=== PATIENT | female | born 1935 | race Caucasian/White ===

== ENCOUNTER 2019-11-06 08:23 | Emergency (ER) | payer MEDICARE, BC ==
[~2019-11-06] VITALS: Ht 162.6 cm; Wt 62.6 kg
[2019-11-06 08:52] LABS: BASOPHILS # (AUTO) 0.1 /CMM (0.0-0.2); EOSINOPHILS % (AUTO) 4.5 % (0.0-6.0); HEMATOCRIT 40 % (33-45); HEMOGLOBIN 13.5 g/dL (11.5-14.8); LYMPHOCYTES # (AUTO) 1.1 /CMM (0.8-4.8); LYMPHOCYTES % (AUTO) 13.5 % (20.0-44.0); MEAN CORPUSCULAR HGB CONC 34 g/dl (31.0-36.0); MEAN CORPUSCULAR VOLUME 89 fL (82-100); MONOCYTES # (AUTO) 0.6 /CMM (0.1-1.30); MONOCYTES % (AUTO) 7.5 % (2.0-12.0); NEUTROPHILS # (AUTO) 6.3 /CMM (1.8-8.9); NEUTROPHILS % (AUTO) 73.5 % (43.0-81.0); PLATELET COUNT (AUTO) 255 /CMM (150-450); RED BLOOD CELL COUNT(AUTO) 4.47 MIL/uL (4.0-5.2); WHITE BLOOD COUNT (AUTO) 8.5 K/uL (4.3-11.0)
[2019-11-06] MEDS: IV NS 0.9% 500 ML BAG IV ONE (09:00)
--- NOTE | 2019-11-06 09:00 | NUR ---
Patient JIMENA from care facility, had a syncopal epsiode in the bathroom with caregiver. On room air, breathing evenly and unlabored. connected to the monitor and pulse ox. Kept comfortable, will continue to monitor accordingly.
[2019-11-06 09:13] LABS: CALCIUM, SERUM 9.4 mg/dL (8.5-10.1); CREATININE 1.2 mg/dL (0.6-1.3); POTASSIUM 4.7 mmol/L (3.5-5.1)
[2019-11-06] MEDS ORDERED: ALEN70TA6 PO (09:38)
[2019-11-06] MEDS ORDERED: CALC-7 PO (09:39)
[2019-11-06] MEDS ORDERED: METH1ADH6 TP (09:39)
[2019-11-06] MEDS ORDERED: PRAV20TA4 PO (09:39)
[2019-11-06] MEDS ORDERED: MEMA1CAP3 PO (09:39)
[2019-11-06] MEDS ORDERED: ASPI-1169 PO (09:39)
[2019-11-06] MEDS ORDERED: TRIA15OI2 TP (09:39)
[2019-11-06] MEDS ORDERED: IBUP-1955 PO (09:39)
[2019-11-06] MEDS ORDERED: ESCI10TA PO (09:39)
[2019-11-06] MEDS ORDERED: CA C1TAB86 PO (09:39)
[2019-11-06] MEDS ORDERED: BUPR-51 PO (09:39)
[2019-11-06 10:38] VITALS: BP 150/71
--- NOTE | 2019-11-06 10:39 | NUR ---
Patient discharged to home in stable condition. Written and verbal after care instructions given. Patient sister verbalizes understanding of instruction.IV removed. Catheter intact and site benign. Pressure and 4x4 applied to site. No bleeding noted.
== END 2019-11-06 10:39 | disposition home or self-care (01) ==
LOC: ER 08:43 → EDBD 08:43 → ER 10:39
DX: S00.81XA Abrasion of other part of head, initial encounter (principal); R55 Syncope and collapse; R00.1 Bradycardia, unspecified; F03.90 Unspecified dementia, unspecified severity, without behavioral disturbance, psychotic disturbance, mood disturbance, and anxiety; I48.91 Unspecified atrial fibrillation; E78.5 Hyperlipidemia, unspecified; Z88.0 Allergy status to penicillin; Z79.82 Long term (current) use of aspirin; Z79.899 Other long term (current) drug therapy; W18.39XA Other fall on same level, initial encounter; Y93.89 Activity, other specified; Y92.89 Other specified places as the place of occurrence of the external cause; Y99.8 Other external cause status
CPT/HCPCS: 36415; 70450; 71045; 72170; 80048; 85025; 93005; 99285; J7040

== ENCOUNTER 2020-03-13 00:22 | Inpatient (IN) | payer MEDICARE, BC ==
[2020-03-13] VITALS (7 sets, daily range): BP systolic 126–167; BP diastolic 57–90
[~2020-03-13] VITALS: Ht 162.6 cm; Wt 62.6 kg
[~2020-03-13 00:22] MED LIST: ALEN70TA6 PO; ASPI-1169 PO; BUPR-51 PO; CA C1TAB86 PO; CALC-7 PO; ESCI10TA PO; IBUP-1955 PO; MEMA1CAP3 PO; METH1ADH6 TP; PRAV20TA4 PO; TRIA15OI2 TP
--- NOTE | 2020-03-13 00:30 | NUR ---
PT BIBA FROM SNF D/T LOW O2 SAT. PT SATTING 985 ON RA W/ NO MEDICAL COMPLAINTS AT THIS TIME. PT AAOX4, VSS, NO ACUTE DISTRESS NOTED. PT CONNECTED TO THE MONITOR AND POX
[2020-03-13 01:22] LABS: BASOPHILS # (AUTO) 0.1 /CMM (0.0-0.2); EOSINOPHILS % (AUTO) 5.7 % (0.0-6.0); HEMATOCRIT 43 % (33-45); HEMOGLOBIN 14.3 g/dL (11.5-14.8); LYMPHOCYTES # (AUTO) 1.6 /CMM (0.8-4.8); LYMPHOCYTES % (AUTO) 12.8 % (20.0-44.0); MEAN CORPUSCULAR HGB CONC 33 g/dl (31.0-36.0); MEAN CORPUSCULAR VOLUME 86 fL (82-100); MONOCYTES # (AUTO) 1.3 /CMM (0.1-1.30); MONOCYTES % (AUTO) 10.5 % (2.0-12.0); NEUTROPHILS # (AUTO) 8.8 /CMM (1.8-8.9); PLATELET COUNT (AUTO) 268 /CMM (150-450); RED BLOOD CELL COUNT(AUTO) 5.01 MIL/uL (4.0-5.2); WHITE BLOOD COUNT (AUTO) 12.6 K/uL (4.3-11.0)
--- NOTE | 2020-03-13 01:26 | NUR ---
URINE COLLECTED AND SENT TO LAB
[2020-03-13 01:50] LABS: CALCIUM, SERUM 9.7 mg/dL (8.5-10.1); CARBON DIOXIDE 26 mmol/L (21-32); CHLORIDE 99 mmol/L (98-107); CREATININE 1.1 mg/dL (0.6-1.3); GLUCOSE 121 mg/dL (74-106); POTASSIUM 4.2 mmol/L (3.5-5.1); SODIUM SERUM 135 mmol/L (136-145); UREA NITROGEN, BLOOD 28 mg/dL (7-18)
[2020-03-13 01:55] LABS: ALANINE AMINOTRANSFERASE 28 U/L (12-78); ALBUMIN 3.1 g/dL (3.4-5.0); ALKALINE PHOSPHATASE 85 U/L (46-116); ASPARTATE AMINOTRANSFERASE 22 U/L (15-37); BILIRUBIN,DIRECT 0.1 mg/dL (0.0-0.2); BILIRUBIN,TOTAL 0.4 mg/dL (0.2-1.0); TOTAL PROTEIN, SERUM 7.3 g/dL (6.4-8.2)
--- NOTE | 2020-03-13 01:58 | NUR ---
RT AT BEDSIDE FOR ABG
[2020-03-13 02:08] LABS: APPEARANCE,URINE CLEAR (CLEAR); BILIRUBIN,URINE NEGATIVE (NEGATIVE); BLOOD, URINE NEGATIVE Ery/uL (NEGATIVE); COLOR,URINE YELLOW (YELLOW); KETONES,URINE NEGATIVE (NEGATIVE); LEUKOCYTE ESTERASE ,URINE NEGATIVE (NEGATIVE); NITRITE, URINE NEGATIVE (NEGATIVE); PROTEIN,URINE NEGATIVE (NEGATIVE); UGLUCOSE NEGATIVE (NEGATIVE); UROBILINOGEN,URINE 0.2 EU/dL (0.2)
[2020-03-13] MEDS ORDERED: DOXYCYCLINE 100 MG VIAL ONE (02:20)
[2020-03-13] MEDS ORDERED: DOXYCYCLINE 100 MG in IV D5W 100 ML IV ONE (02:30)
--- NOTE | 2020-03-13 02:46 | NUR ---
COVID, INFLUENZA, AND RSV SWAB SAMPLES SENT TO LAB
[2020-03-13] MEDS ORDERED: MIDO5TAB4 PO (02:58)
--- NOTE | 2020-03-13 02:58 | NUR ---
ER DOC ON PHONE WITH HOSPITALIST
[2020-03-13] MEDS ORDERED: IV NS 0.9% 1,000 ML IV PRN (03:05)
[2020-03-13 03:20] LABS: D-DIMER 4.2 mg/L(FEU (0.17-0.50)
[2020-03-13] MEDS ORDERED: MAG HYDROX/AL HYDROX/SIMETH 30 ML UDC PO PRN (03:30)
[2020-03-13] MEDS ORDERED: Z GUARD REMEDY 2 OZ OINT TP PRN (03:30)
[2020-03-13] MEDS ORDERED: ACETAMINOPHEN 325 MG TABLET PO PRN (03:30)
[2020-03-13] MEDS ORDERED: HYDROCODONE/APAP 5/325MG 1 EACH TABLET PO PRN (03:30)
[2020-03-13] MEDS ORDERED: ONDANSETRON HCL/PF 4 MG/2 ML VIAL IVP PRN (03:30)
[2020-03-13] MEDS ORDERED: ZOLPIDEM TARTRATE 5 MG TABLET PO PRN (03:30)
[2020-03-13] MEDS ORDERED: MAGNESIUM HYDROXIDE 30 ML UDC PO PRN (03:30)
[2020-03-13] MEDS ORDERED: ALBUTEROL SULFATE INH 18 GM HFA.AER.AD IH PRN (03:30)
--- NOTE | 2020-03-13 03:45 | NUR ---
RN ADMITTING NOTES: RECEIVED PATIENT FROM ER VIA GURNEY; ADMITTING DIAGNOSIS OF RESPIRATORY FAILURE R/O COVID19; RESULTS PENDING. PATIENT AWAKE, ALERT AND ORIENTED X2. PATIENT DENIES PAIN, IN NO S/SX OF ACUTE DISTRESS AT THIS TIME. NO SOB NOTED. PATIENT'S BREATHING IS EVEN AND UNLABORED. PATIENT IS ON 3 L OF OXYGEN VIA NC; TOLERATING WELL.SATURATING 98% AT THE MOMENT. PATIENT ON TELE MONITORING READING SINUS ANTONIO WITH HR 50s. NOTED IV SITE ON R UA; GAUGE 20,FLUSHING AND PATENT , SALINE LOCKED. NO S/S OF INFECTION OR INFILTRATION. PATIENT ON DIAPERS. NOTED REDNESS AND BRUISES ON BOTH ELBOWS. PICTURE TAKEN AND PLACED IN CHART. PATIENT KEPT CLEAN , DRY AND COMFORTABLE. PATIENT ON SOFT DIET. SAFETY MEASURES HAVE BEEN PROVIDED AND IMPLEMENTED. PATIENT BED ALARM IS ON. HEAD OF BED ELEVATED. BED IS LOCKED, IN LOWEST POSITION AND SIDE RAILS UP. CALL LIGHT WITHIN REACH OF THE PATIENT. ISOLATION PRECAUTIONS IN PLACE. WILL CONTINUE TO MONITOR AND REASSESS FOR ANY CHANGES. WILL ATTEND TO ALL MD ADMITTING ORDERS.
--- NOTE | 2020-03-13 03:51 | NUR ---
PT WAS TRANSFERRED TO 107 UNDER ACLS
[2020-03-13] MEDS ORDERED: VANCOMYCIN 1.25 GM in IV NS 0.9% 250 ML IV ONE (04:30)
[2020-03-13] MEDS ORDERED: VANCOMYCIN 500 MG VIAL ONE (05:12)
[2020-03-13] MEDS ORDERED: VANCOMYCIN 1 GM VIAL ONE (05:14)
--- NOTE | 2020-03-13 05:33 | NUR ---
RN NOTES: MD ORDERED FOR VANCOMYCIN OF 1.25GMS TO BE INFUSED AT 430AM, HOWEVER [facility] ONLY HAVE 1GM, INFORMED LEAD RUBY ON RAILS DEVELOPER. WHAT WAS DONE: 1 GRAM FROM [facility] & 500 GRAMS CAME FROM PHOTOGRAPHIC PRINTER WHEREIN 250 GMS WAS TAKEN FROM TO COMPLETE THE ORDERED DOSE OF 1.25GM ADMINISTERED @533AM. LEAD RUBY ON RAILS DEVELOPER MADE AWARE AND PHARMACY.
[2020-03-13] MEDS ORDERED: PIPERACILLIN /TAZOBACTAM 3.375 G in IV D5W 50 ML IV SCH (06:00)
--- NOTE | 2020-03-13 06:55 | NUR ---
RN CLOSING NOTE: PATIENT REMAINS IN ROOM. NO SIGNS OF RESPIRATORY DISTRESS. SAFETY MEASURES IMPLEMENTED, BED IN LOWEST POSITION, LOCKED, SIDE RAILS UP, CALL LIGHT WITHIN REACH. ALL NEEDS AND ORDERS ADDRESSED DURING THE SHIFT. ALL DUE MEDS GIVEN ORDERED & SCHEDULED ; PATIENT TOLERATED WELL.PATIENT KEPT CLEAN AND COMFORTABLE WITHIN THE SHIFT. ENDORSED TO INCOMING SHIFT RN FOR CONTINUITY OF CARE.
--- NOTE | 2020-03-13 08:15 | NUR ---
RN OPENING NOTE: RECEIVED PATIENT IN BED THIS MORNING. PATIENT IS ALERT AND ORIENTED X1, CONFUSED. SB IN THE 50S ON THE TELE MONITOR. BED REST. USES DIAPER. PATIENT IS ON A SOFT DIET. #20 ON RFA. ISOLATION PRECAUTIONS TO R/O COVID. 3L/MIN O2 VIA NC, SATING WELL, NO SIGNS OF RESPIRATORY DISTRESS NOTED. NO SIGNS OF ACUTE DISTRESS NOTED. SAFETY MEASURES IMPLEMENTED, BED IN LOWEST POSITION, LOCKED, SIDE RAILS UP X2, CALL LIGHT WITHIN REACH. WILL CONTINUE TO MONITOR PATIENT FOR CHANGES.
[2020-03-13] MEDS ORDERED: FEE PK DOSING 1 MIN EA MC ONE (08:38)
[2020-03-13] MEDS ORDERED: ENOXAPARIN SODIUM 30 MG/0.3 ML DISP.SYRIN SQ SCH (09:00)
[2020-03-13] MEDS: BUPROPION XL 150 MG TAB.ER.24 PO SCH (09:50)
[2020-03-13] MEDS: MEMANTINE HCL 5 MG TABLET PO SCH ×2 (09:51→16:16)
[2020-03-13] MEDS: ASPIRIN 81 MG TAB.CHEW PO SCH (09:51)
[2020-03-13] MEDS: MIDODRINE HCL (5MG) 5 MG TABLET PO SCH ×4 (09:51→16:19)
[2020-03-13] MEDS: ENOXAPARIN SODIUM 40 MG/0.4 ML DISP.SYRIN SQ SCH (09:54)
[2020-03-13 10:25] LABS: ABG BASE EXCESS 0.1 mmol/L; ABG OXYGEN SATURATION 91.7 % (92.0-98.5); ABG PCO2 33.4 mmHg (35.0-45.0); ABG PH 7.461 (7.350-7.450); ABG PO2 60.1 mmHg (75.0-100.0); COHb 0.8 % (0.5-1.5); MetHb 0.3 % (0.0-1.5); O2Hb 90.7 % (94.0-97.0); SITE, ABG Right Radial; VENT MODE, BG room air
--- NOTE | 2020-03-13 10:48 | NUR ---
WOUND CARE CONSULT: REVIEWED CHART, NURSING DOCUMENTATION, AND PHOTOS WHICH SHOW BRUISING AND SCARRING TO ELBOWS/ARMS PRESENT ON ADMISSION. RECOMMENDATIONS MADE FOR SKIN PROTECTION. DISCUSSED WITH NURSING STAFF. PT IS ON [place] ISOFLEX LOW AIRLOSS BED. WILL SEE PRN. IN AGREEMENT WITH PLAN OF CARE.
--- NOTE | 2020-03-13 16:20 | NUR ---
1700 MIDODRINE HELD D/T INCREASED BP
[2020-03-13] MEDS: IV NS 0.9% 1,000 ML IV PRN (17:16)
[2020-03-13] MEDS: CALCIUM CARB 250MG /VITAMIN D 1 UDTAB PO SCH (18:50)
--- NOTE | 2020-03-13 19:23 | NUR ---
RN CLOSING NOTE: PATIENT REMAINS IN BED. NO SIGNS OF ACUTE DISTRESS NOTED. SB IN THE 50S ON THE TELE MONITOR. SAFETY MEASURES IMPLEMENTED, BED IN LOWEST POSITION, LOCKED, SIDE RAILS UP, CALL LIGHT WITHIN REACH. ENDORSED TO ONCOMING SHIFT RN FOR CONTINUITY OF CARE.
--- NOTE | 2020-03-13 20:00 | NUR ---
OUTSOLE SKIVER NOTE PT IN BED AWAKE. A/O X 1-2 CONFUSED. PT NOTED PULLED OUT IV LINE NO BLEEDING NOTED. TRIED TO INSERT NEW LINE BUT NO SUCCESS. INFORMED CHARGE NURSE TO TRY LATER. ON TELE SB HR 55. NO S/S OF PAIN NOTED. INCONTINENCE CARE GIVEN. ASSISTED HER REPOSITIONING. REMAIN IN ISOLATION FOR PENDING COVID RESULT. ISOLATION PRECAUTIONS TAKEN. ALL NEEDS ATTENDED. SIDE RAILS UP X 2 AND CALL LIGHT WITHIN REACH. VSS. CONTINUE TO MONITOR HER.
--- NOTE | 2020-03-13 20:45 | NUR ---
RN PLASTIC SURGERY NOTE CHARGE NURSE INSERTED NEW LINE #22 G IN LFA, RESUMED IVF NS AT 40 ML/HR, NO S/S OF INFILTRATION NOTED. CONTINUE TO MONITOR HER.
[2020-03-13] MEDS: ATORVASTATIN 10 MG TABLET PO SCH (21:13)
[2020-03-13] MEDS: ESCITALOPRAM OXALATE (10 MG) 10 MG TABLET PO SCH (21:13)
[2020-03-13] MEDS: VANCOMYCIN 1 GM in IV D5W 250 ML IV SCH (23:55)
[2020-03-14] VITALS: BP 142/80
[2020-03-14 04:00] VITALS: BP 140/71
--- NOTE | 2020-03-14 04:01 | NUR ---
SERVICE ESTABLISHMENT ATTENDANT NOTE PT IS AWAKE AND CONFUSED. KEPT ON REMOVING N/C, REMINDED PT NOT TO DO THAT. PT STATES "i DON'T CARE ANY MORE".
[2020-03-14] MEDS ORDERED: LEVOFLOXACIN 500 MG /D5W 100ML 500 MG in PREMIX 1 EA IV SCH (05:30)
[2020-03-14] MEDS ORDERED: LEVOFLOXACIN 500 MG /D5W 100ML 100 ML IV ONE (05:48)
--- NOTE | 2020-03-14 06:21 | NUR ---
WIRE ROPE SLING MAKER NOTE PT IN BED ASLEEP, AROUSABLE. NO DISTRESS OR DISCOMFORT NOTED. DENIES PAIN. IVF INFUSING WELL, NO S/S INFILTRATION NOTED. ON TELE SB . ALL NEEDS ATTENDED. SIDE RAILS UP X 2 AND CALL LIGHT WITHIN REACH. WILL ENDORSE TO DAY SHIFT NURSE FOR CONTINUE TO CARE.
[2020-03-14 06:32] LABS: BASOPHILS # (AUTO) 0.1 /CMM (0.0-0.2); BASOPHILS % (AUTO) 1.1 % (0.0-2.0); EOSINOPHILS % (AUTO) 5.8 % (0.0-6.0); HEMATOCRIT 40 % (33-45); HEMOGLOBIN 13.3 g/dL (11.5-14.8); LYMPHOCYTES # (AUTO) 1.2 /CMM (0.8-4.8); LYMPHOCYTES % (AUTO) 13.2 % (20.0-44.0); MEAN CORPUSCULAR HGB CONC 34 g/dl (31.0-36.0); MEAN CORPUSCULAR VOLUME 85 fL (82-100); MONOCYTES % (AUTO) 10.9 % (2.0-12.0); PLATELET COUNT (AUTO) 264 /CMM (150-450); RED BLOOD CELL COUNT(AUTO) 4.66 MIL/uL (4.0-5.2); WHITE BLOOD COUNT (AUTO) 8.8 K/uL (4.3-11.0)
[2020-03-14 07:01] LABS: THYROID STIMULATING HORMONE 0.929 uIU/mL (0.358-3.74)
[2020-03-14 07:02] LABS: CALCIUM, SERUM 8.5 mg/dL (8.5-10.1); CREATININE 0.9 mg/dL (0.6-1.3); MAGNESIUM 1.8 mg/dL (1.8-2.4); PHOSPHORUS 3.6 mg/dL (2.5-4.9)
--- NOTE | 2020-03-14 07:35 | NUR ---
RN OPENING NOTES Received pt at bed on RA, O2 sat 94%, tolerating well, IV Left FA G22 noted, patent and intact, running NS @ 40cc/hr, patient on tele-monitor with readings of Sinus Rhythm 63, patient is verbal,Occitan speaking, saying "I am tiered and do not care anymore" A/Ox2, safety measures implemented, bed in lowest position, side rails up, call light within reach, will cont to monitor
[2020-03-14 08:00] VITALS: BP 112/60
[2020-03-14 08:02] LABS: D-DIMER 2.96 mg/L(FEU (0.17-0.50)
[2020-03-14] MEDS: MIDODRINE HCL (5MG) 5 MG TABLET PO SCH ×4 (08:14→16:20)
[2020-03-14] MEDS: MEMANTINE HCL 5 MG TABLET PO SCH ×3 (08:15→16:21)
[2020-03-14] MEDS: ASPIRIN 81 MG TAB.CHEW PO SCH ×2 (08:15→09:00)
[2020-03-14] MEDS: ENOXAPARIN SODIUM 40 MG/0.4 ML DISP.SYRIN SQ SCH ×2 (08:18→09:00)
--- NOTE | 2020-03-14 08:43 | NUR ---
Patient is refusing PO meds and Levonox, saying she "do not care anymore" , tried multiple attempts, holding all meds
[2020-03-14 12:00] VITALS: BP 152/67
[2020-03-14 15:10] LABS: *SPE A/G RATIO 0.9 (0.7-1.7); *SPE ALBUMIN 2.6 g/dL (2.9-4.4); *SPE ALPHA-1-GLOBULIN 0.3 g/dL (0.0-0.4); *SPE ALPHA-2-GLOBULIN 1.1 g/dL (0.4-1.0); *SPE BETA GLOBULIN 0.8 g/dL (0.7-1.3); *SPE M-SPIKE Not Observed g/dL (Not Observed); *SPEGAMMA GLOBULIN 0.8 g/dL (0.4-1.8)
[2020-03-14 16:00] VITALS: BP 195/89
[2020-03-14] MEDS: VANCOMYCIN 1 GM in IV D5W 250 ML IV SCH (17:44)
[2020-03-14] MEDS: CALCIUM CARB 250MG /VITAMIN D 1 UDTAB PO SCH ×2 (17:44→17:58)
--- NOTE | 2020-03-14 17:59 | NUR ---
patient refused 1700 meds
--- NOTE | 2020-03-14 18:00 | NUR ---
Patient willing to speak to case management director, charge nurse notified
--- NOTE | 2020-03-14 18:45 | NUR ---
RN CLOSING NOTES Pt remains in bed, calmly watching TV. A/O x2, patient is verbalizing multiple time per day she doesn't want medical care anymore. Skin is intact, no s/sx of distress, tolerating RA well. Comfort need are met, safety measures implemented, bed in lowest position, call light within reach, will endorse to PM shift RN for LILY
--- NOTE | 2020-03-14 19:20 | NUR ---
RN OPENING NOTES: RECEIVED PT A/OX2; CONFUSED BUT COOPERATIVE. PT IN BED RESTING COMFORTABLY. PATIENT IN NO S/SX OF ACUTE DISTRESS AT THIS TIME. NO SOB NOTED. PATIENT'S BREATHING IS EVEN AND UNLABORED. PATIENT IS ON 3 L OF OXYGEN VIA NC ; TOLERATING WELL. PATIENT ON TELE MONITORING READING SINUS RHYTHM HR IS @66. NOTED IV SITE ON L FA #22 ; PATENT IN INTACT,NO S/S OF INFECTION OR INFILTRATION.PT ON DIAPERS. SAFETY MEASURES HAVE BEEN PROVIDED AND IMPLEMENTED. PATIENT BED ALARM IS ON. HEAD OF BED ELEVATED. BED IS LOCKED, IN LOWEST POSITION AND SIDE RAILS UP. CALL LIGHT WITHIN REACH OF THE PATIENT. ISOLATION PRECAUTIONS IN PLACE. WILL CONTINUE TO MONITOR AND REASSESS FOR ANY CHANGES.
[2020-03-14 20:00] VITALS: BP 184/81
[2020-03-14] MEDS: IV NS 0.9% 1,000 ML IV PRN (20:36)
--- NOTE | 2020-03-14 21:40 | NUR ---
RN NOTES RECEIVED CALL FROM PT'S SISTER SINAI , JUST TRYING TO TOUCH BASE AND TO MAKE SURE THAT PT IS DOING FINE. RN ON SHIFT PROVIDED ASSURANCE TO HER ABOUT PT. SHE IS SO GLAD ABOUT THE SERVICE AND FOR TAKING CARE OF HER SISTER.
[2020-03-14] MEDS: ATORVASTATIN 10 MG TABLET PO SCH (22:37)
[2020-03-14] MEDS: ESCITALOPRAM OXALATE (10 MG) 10 MG TABLET PO SCH (22:37)
[2020-03-15] VITALS (7 sets, daily range): BP systolic 141–181; BP diastolic 80–123
[2020-03-15] MEDS ORDERED: LEVOFLOXACIN 750 MG /D5W 150ML 750 MG in PREMIX 1 EA IV SCH (05:00)
[2020-03-15 06:20] LABS: BASOPHILS # (AUTO) 0.1 /CMM (0.0-0.2); BASOPHILS % (AUTO) 0.7 % (0.0-2.0); EOSINOPHILS % (AUTO) 3.4 % (0.0-6.0); HEMATOCRIT 38 % (33-45); HEMOGLOBIN 12.9 g/dL (11.5-14.8); LYMPHOCYTES # (AUTO) 1.1 /CMM (0.8-4.8); LYMPHOCYTES % (AUTO) 10.3 % (20.0-44.0); MEAN CORPUSCULAR HGB CONC 34 g/dl (31.0-36.0); MEAN CORPUSCULAR VOLUME 85 fL (82-100); MONOCYTES # (AUTO) 1.2 /CMM (0.1-1.30); MONOCYTES % (AUTO) 11.9 % (2.0-12.0); NEUTROPHILS # (AUTO) 7.7 /CMM (1.8-8.9); NEUTROPHILS % (AUTO) 73.7 % (43.0-81.0); PLATELET COUNT (AUTO) 267 /CMM (150-450); RED BLOOD CELL COUNT(AUTO) 4.53 MIL/uL (4.0-5.2); WHITE BLOOD COUNT (AUTO) 10.4 K/uL (4.3-11.0)
--- NOTE | 2020-03-15 06:24 | NUR ---
RN CLOSING NOTE: PATIENT REMAINS IN ROOM. NO SIGNS OF RESPIRATORY DISTRESS. SAFETY MEASURES IMPLEMENTED, BED IN LOWEST POSITION, LOCKED, SIDE RAILS UP, CALL LIGHT WITHIN REACH. ALL NEEDS AND ORDERS ADDRESSED DURING THE SHIFT. ALL DUE MEDS GIVEN ORDERED & SCHEDULED ; PATIENT TOLERATED WELL.PATIENT KEPT CLEAN AND COMFORTABLE WITHIN THE SHIFT. APPROPRIATE ISOLATION PRECAUTION EXECUTED. ENDORSED TO INCOMING SHIFT RN FOR CONTINUITY OF CARE.
[2020-03-15 06:26] LABS: CALCIUM, SERUM 7.9 mg/dL (8.5-10.1); CREATININE 0.9 mg/dL (0.6-1.3); MAGNESIUM 1.9 mg/dL (1.8-2.4); PHOSPHORUS 3.3 mg/dL (2.5-4.9)
[2020-03-15] MEDS: BUPROPION XL 150 MG TAB.ER.24 PO SCH (08:21)
[2020-03-15] MEDS: MEMANTINE HCL 5 MG TABLET PO SCH ×2 (08:22→16:44)
[2020-03-15] MEDS: ASPIRIN 81 MG TAB.CHEW PO SCH (08:23)
[2020-03-15] MEDS: ENOXAPARIN SODIUM 40 MG/0.4 ML DISP.SYRIN SQ SCH (08:25)
[2020-03-15] MEDS: MIDODRINE HCL (5MG) 5 MG TABLET PO SCH ×3 (08:34→16:45)
--- NOTE | 2020-03-15 09:30 | NUR ---
PT HAD A ABDOMEN/PELVIS CT SCAN WITHOUT CONTRAST
--- NOTE | 2020-03-15 10:00 | NUR ---
RN JELLY COSBY FROM [facility] CALLED PATIENT WILL HAVE A THORACENTESIS 03/16/2020, DO NOT ADMINISTER LOVENOX 24 HR WINDOW. WILL ONTAIN PROCEDURE CONSENT
--- NOTE | 2020-03-15 11:31 | NUR ---
I SPOKE TO RN REGARDING THORACENTESIS, WILL BE DONE TOMORROW DUE TO LOVENOX. ALSO RN WILL GET CONSENT TODAY
[2020-03-15] MEDS: VANCOMYCIN 0.75 GM in IV D5W 250 ML IV SCH (12:43)
[2020-03-15] MEDS: SENNOSIDES/DOCUSATE SODIUM 1 TAB TABLET PO SCH (12:53)
--- NOTE | 2020-03-15 13:47 | NUR ---
RN NOTES THORACENTESIS PROCEDURE : LARGE RIGHT PLEURAL EFFUSION, CONSENT OBTAINED BY ROBBIE RN .
--- NOTE | 2020-03-15 15:11 | NUR ---
RN OPENING NOTES: RECEIVED PT IN BED COMFORTABLY , A/OX2; CONFUSED BUT COOPERATIVE. PATIENT IN NO S/SX OF ACUTE DISTRESS AT THIS TIME. NO SOB NOTED. PATIENT'S BREATHING IS EVEN AND UNLABORED. PATIENT IS ON 3 L OF OXYGEN VIA NC ; TOLERATING WELL. PATIENT ON TELE MONITORING READING SINUS RHYTHM HR IS @70'S. NOTED IV SITE ON L FA #22 ; PATENT IN INTACT,NO S/S OF INFECTION OR INFILTRATION.PT ON DIAPERS. SAFETY MEASURES HAVE BEEN PROVIDED AND IMPLEMENTED. PATIENT BED ALARM IS ON. HEAD OF BED ELEVATED. BED IS LOCKED, IN LOWEST POSITION AND SIDE RAILS UP. CALL LIGHT WITHIN REACH OF THE PATIENT. ISOLATION PRECAUTIONS IN PLACE. WILL CONTINUE TO MONITOR .
--- NOTE | 2020-03-15 16:45 | NUR ---
RN NOTES UN-ADMINISTER MIDRODINE DUE TO INCREASED BP. WILL RECHECK IN 30 MINS. NOTIFIED CHARGE NURSE.
--- NOTE | 2020-03-15 17:45 | NUR ---
RN NOTES NOTIFIED MD PIMENTEL BP WITHIN LAST HOUR: 181/82,175/81, AND 189/88.
[2020-03-15] MEDS: CALCIUM CARB 250MG /VITAMIN D 1 UDTAB PO SCH (18:27)
[2020-03-15] MEDS ORDERED: hydrALAZINE HCL 10 MG TABLET PO ONE (18:30)
--- NOTE | 2020-03-15 18:30 | NUR ---
RN NOTES MD PIMENTEL ORDERED HYDROLAZINE 10MG ONCE AND GIVEN
--- NOTE | 2020-03-15 19:20 | NUR ---
RN CLOSING NOTE: ENDORSED PATIENT TO PM NURSE FOR LLIY.PATIENT REMAINS IN ROOM. NO S/S OF RESPIRATORY DISTRESS.PATIENT ON TELE READING SR @ 79'S. SAFETY MEASURES IMPLEMENTED, BED IN LOWEST POSITION, LOCKED, SIDE RAILS UP, CALL LIGHT WITHIN REACH. ALL NEEDS AND ORDERS ADDRESSED DURING THE SHIFT. ALL DUE MEDS GIVEN ORDERED & SCHEDULED ; PATIENT TOLERATED WELL.PATIENT KEPT CLEAN AND COMFORTABLE WITHIN THE SHIFT.
--- NOTE | 2020-03-15 19:40 | NUR ---
RN OPENING NOTE RECEIVED PT in BED RESTING COMFORTABLY. AOX2, CONFUSED AT TIMES. PATIENT IN NO S/SX OF ACUTE DISTRESS AT THIS TIME. PATIENT'S BREATHING IS EVEN AND UNLABORED. PATIENT IS ON 2 L OF OXYGEN VIA NC; TOLERATING WELL. PATIENT ON TELE MONITOR READING SR, HR IS @74. NOTED IV SITE ON LAC, WITH NS AT 40 ML/HR; PATENT AND FLUSHING WELL,NO S/S OF INFECTION OR INFILTRATION. SAFETY MEASURES IMPLEMENTED PER PROTOCOL. PATIENT BED ALARM IS ON. HEAD OF BED ELEVATED. BED IS LOCKED, IN LOWEST POSITION AND SIDE RAILS UP. CALL LIGHT WITHIN REACH OF THE PATIENT. WILL CONTINUE TO MONITOR AND REASSESS FOR ANY CHANGES.
--- NOTE | 2020-03-15 19:40 | NUR ---
RN NOTE TELEPHONE CALL FROM TAMMY OF CLINICAL LAB, STATED PATIENT'S COVID TEST RESULT IS NEGATIVE. GRAVEL INSPECTOR INFORMED.
--- NOTE | 2020-03-15 20:10 | NUR ---
RN NOTE NOTED BP 164/116, SATURATION 91%. REPOSITIONED AND REASSESSED PATIENT. SUPPLEMENTAL O2 ADJUSTED BACK TO 3LPM. NOW SATURATING AT 95%. RECHECKED BP AND REVEALED 174/91. EXTRACTION MACHINE OPERATOR MADE AWARE.
--- NOTE | 2020-03-15 20:50 | NUR ---
regional telecommunications specialist notes Blood pressure 175/91 relayed to puja scales with order hydralazine 10 mg 1vp q 6 hrs prn for sbp >160
[2020-03-15] MEDS ORDERED: hydrALAZINE HCL IV 20 MG VIAL IV PRN (21:00)
--- NOTE | 2020-03-15 21:00 | NUR ---
RN NOTE PATIENT TRANSFERRED TO 115 BED 2. ENDORSED TO MEKHI RN FOR CONTINUATION OF CARE.
[2020-03-15] MEDS: ATORVASTATIN 10 MG TABLET PO SCH ×2 (21:13→21:49)
[2020-03-15] MEDS: ESCITALOPRAM OXALATE (10 MG) 10 MG TABLET PO SCH ×2 (21:14→21:49)
--- NOTE | 2020-03-15 21:42 | NUR ---
RN NOTE: Received report from Ace for LILY.
--- NOTE | 2020-03-15 21:47 | NUR ---
RN NOTE: Rechecked pt's VS post Hydralazine. BP: 156/73 P: 75. Will continue to monitor.
[2020-03-16] VITALS: BP 160/82
[2020-03-16] MEDS: VANCOMYCIN 0.75 GM in IV D5W 250 ML IV SCH ×2 (00:48→12:54)
[2020-03-16 04:00] VITALS: BP 140/69
[2020-03-16 06:47] LABS: BASOPHILS % (AUTO) 0.4 % (0.0-2.0); EOSINOPHILS % (AUTO) 1.1 % (0.0-6.0); HEMATOCRIT 36 % (33-45); HEMOGLOBIN 12.4 g/dL (11.5-14.8); LYMPHOCYTES # (AUTO) 0.8 /CMM (0.8-4.8); LYMPHOCYTES % (AUTO) 8.3 % (20.0-44.0); MEAN CORPUSCULAR HGB CONC 34 g/dl (31.0-36.0); MEAN CORPUSCULAR VOLUME 85 fL (82-100); MONOCYTES # (AUTO) 0.8 /CMM (0.1-1.30); MONOCYTES % (AUTO) 8.4 % (2.0-12.0); NEUTROPHILS # (AUTO) 7.9 /CMM (1.8-8.9); NEUTROPHILS % (AUTO) 81.8 % (43.0-81.0); PLATELET COUNT (AUTO) 268 /CMM (150-450); RED BLOOD CELL COUNT(AUTO) 4.28 MIL/uL (4.0-5.2); WHITE BLOOD COUNT (AUTO) 9.7 K/uL (4.3-11.0)
--- NOTE | 2020-03-16 06:56 | NUR ---
RN CLOSING NOTES: Pt remains on 3L/min NC, tolerating well. No SOB or respiratory distress noted during shift. SR on tele monitor. No acute changes noted throughout shift. IV site on LFA #22 patent and flushing w/ NS infusing at 40ml/hr. All meds administered as ordered. Safety measures in place. Will endorse to AM nurse for LILY.
[2020-03-16 07:02] LABS: CALCIUM, SERUM 7.5 mg/dL (8.5-10.1); CARBON DIOXIDE 22 mmol/L (21-32); CHLORIDE 97 mmol/L (98-107); CREATININE 0.9 mg/dL (0.6-1.3); GLUCOSE 104 mg/dL (74-106); MAGNESIUM 1.8 mg/dL (1.8-2.4); POTASSIUM 3.8 mmol/L (3.5-5.1); SODIUM SERUM 129 mmol/L (136-145); UREA NITROGEN, BLOOD 20 mg/dL (7-18)
[2020-03-16 08:00] VITALS: BP 157/76
--- NOTE | 2020-03-16 08:00 | NUR ---
RN OPENING NOTE RECEIVED PT in BED RESTING COMFORTABLY. AOX2, CONFUSED AT TIMES. PATIENT IN NO S/SX OF ACUTE DISTRESS AT THIS TIME. PATIENT'S BREATHING IS EVEN AND UNLABORED. PATIENT IS ON 2 L OF OXYGEN VIA NC; TOLERATING WELL. PATIENT ON TELE MONITOR READING SR, HR IS @70. NOTED IV SITE ON LAC, WITH NS AT 40 ML/HR; PATENT AND FLUSHING WELL,NO S/S OF INFECTION OR INFILTRATION. SAFETY MEASURES IMPLEMENTED PER PROTOCOL. PATIENT BED ALARM IS ON. HEAD OF BED ELEVATED. BED IS LOCKED, IN LOWEST POSITION AND SIDE RAILS UP. CALL LIGHT WITHIN REACH OF THE PATIENT. WILL CONTINUE TO MONITOR AND REASSESS FOR ANY CHANGES.
[2020-03-16] MEDS: ENOXAPARIN SODIUM 40 MG/0.4 ML DISP.SYRIN SQ SCH (09:00)
--- NOTE | 2020-03-16 09:28 | NUR ---
S/P THORACENTESIS PROCEDURE DONE AND HELD LOVENOX FOR TODAY OBTAINING 1,100 ML PLEURAL FLUID FROM RT PLEURAL SPACE.DR BALL ISN PLANNING TO DO BIOPSY BY THURSDAY BUT HAS TO DISCUSS IT FIRST WITH THE HOSPITALIST FOR TODAY.WILL ORDER STAT CXR STAT.
[2020-03-16] MEDS: MIDODRINE HCL (5MG) 5 MG TABLET PO SCH ×3 (09:38→17:33)
[2020-03-16] MEDS: ASPIRIN 81 MG TAB.CHEW PO SCH (09:38)
[2020-03-16] MEDS: SENNOSIDES/DOCUSATE SODIUM 1 TAB TABLET PO SCH (09:38)
[2020-03-16] MEDS: MEMANTINE HCL 5 MG TABLET PO SCH ×2 (09:38→17:33)
--- NOTE | 2020-03-16 11:40 | NUR ---
DR BALL SPOKE TO THE PT AND STATED THAT THE PT REFUSED SAYING THAT IT IS NOT FAIR FOR HAVING THE LUNG BIOPSY TO BE DONE TO HER. DR BALL WILL CALL PT'S FAMILY/RESPONSIBLE [employer] ,[place].
[2020-03-16 12:00] VITALS: BP 148/78
--- NOTE | 2020-03-16 12:08 | NUR ---
Per Dr. Franks, Radiologist, Biopsy will be done on 03/19/2020.
--- NOTE | 2020-03-16 12:16 | NUR ---
PT'S RT LUNG BIOPSY WILL BE ON THURSDAY TILL FURTHER NOTICE AND TO HOLD LOVENOX ON THURSDAY.
--- NOTE | 2020-03-16 12:16 | NUR ---
HELD MIDODRINE-PT'S BP IS HIGH 148/78
[2020-03-16] MEDS: IV NS 0.9% 1,000 ML IV PRN (15:36)
--- NOTE | 2020-03-16 15:37 | NUR ---
TRANSFERRED TO 3 [facility] SURG/TELE UNIT ROOM 306 AND GAVE REPORT TO MANJULA LESTER WITH STABLE V/S INCLUDING BELONGINGS AND MEDS.
[2020-03-16 16:00] VITALS: BP 119/60
--- NOTE | 2020-03-16 16:38 | NUR ---
RELIEF PILOT NOTES RECEIVED PATIENT FROM [facility]RIAN, REPORT GIVEN BY KHALIF FAIR. PATIENT ALERT ORIENTED X 2. NO ACUTE DISTRESS NOTED. NO SOB NOTED. SINUS RHYTHM ON RECORD TESTER. VITAL SIGNS STABLE. SAFETY MEASURES IN PLACE. CALL LIGHT WITHIN REACH. WILL CONTINUE TO MONITOR ACCORDINGLY.
[2020-03-16 17:33] VITALS: BP 110/61
[2020-03-16] MEDS: CALCIUM CARB 250MG /VITAMIN D 1 UDTAB PO SCH (17:36)
--- NOTE | 2020-03-16 18:50 | NUR ---
PRINCIPAL CLERK NOTES PATIENT DISCHARGE TO [facility]IVING WITH [address] [facility] P# [phone]. ALERT ORIENTED X 2. NO ACUTE DISTRESS NOTED. NO SOB NOTED. DISCHARGE INSTRUCTIONS GIVEN TO THE EMT PERSONNEL TO BE GIVEN TO FAMILY AND LOLY. ALL BELONGINGS ACCOUNTED FOR. VITAL SIGNS STABLE. IV ACCESS REMOVED, NO REDNESS, NO BLEEDING , NO REDNESS NOTED. NEEDS ATTENDED AND ANTICIPATED. PICKED UP VIA AMBULANCE IN A GURNEY ACCOMPANIED BY 2 EMT PERSONNEL IN STABLE CONDITION.
[2020-03-18] MEDS ORDERED: ALENDRONATE 70 MG TABLET PO SCH (07:30)
== END 2020-03-16 18:50 | DRG 193 ==
LOC: ER 00:25 → TELE1 03:30 → TELE 03-16 15:15
PROVIDERS: ADMIT Nurse Practitioner Acute Care; ATTEND Nurse Practitioner Acute Care
PROC: 0W993ZZ Drainage of Right Pleural Cavity, Percutaneous Approach (ICD-10-PCS; principal; 2020-03-16)
DX: J15.9 Unspecified bacterial pneumonia (principal); G93.41 Metabolic encephalopathy; J96.91 Respiratory failure, unspecified with hypoxia; J98.11 Atelectasis; E44.1 Mild protein-calorie malnutrition; E87.1 Hypo-osmolality and hyponatremia; J94.8 Other specified pleural conditions; I48.91 Unspecified atrial fibrillation; F03.90 Unspecified dementia, unspecified severity, without behavioral disturbance, psychotic disturbance, mood disturbance, and anxiety; R47.9 Unspecified speech disturbances; E78.5 Hyperlipidemia, unspecified; Z88.0 Allergy status to penicillin; M81.0 Age-related osteoporosis without current pathological fracture; F41.9 Anxiety disorder, unspecified; Z79.899 Other long term (current) drug therapy; Z79.83 Long term (current) use of bisphosphonates; J98.4 Other disorders of lung; E86.0 Dehydration; F17.200 Nicotine dependence, unspecified, uncomplicated; F32.9 Major depressive disorder, single episode, unspecified; I70.0 Atherosclerosis of aorta; Z85.118 Personal history of other malignant neoplasm of bronchus and lung; Z91.81 History of falling; E27.9 Disorder of adrenal gland, unspecified; L30.9 Dermatitis, unspecified; K80.20 Calculus of gallbladder without cholecystitis without obstruction; R59.0 Localized enlarged lymph nodes
CPT/HCPCS: 36415; 36600; 70450-TC; 71045-TC; 71250-TC; 80048-TC; 80061-TC; 80076-TC; 80202-TC; 81000-TC; 82378; 82550-TC; 82728-TC; 83615-TC; 83735-TC; 83880; 84100-TC; 84155; 84165; 84443-TC; 84484-TC; 85025-TC; 85378-TC; 85385-TC; 85610-TC; 85730-TC; 86140-TC; 86301; 87040-TC; 87070-TC; 87081-TC; 89051-TC; 93307-TC; 94799-TC; A4216; G0378; J0360; J1650; J1956; J2543; J3370; J3490; J7030; J7050; J7060; U0003-CS